=== PATIENT | male | born 1950 | race Caucasian/White ===

== ENCOUNTER 2019-03-19 12:18 | Inpatient (IN) | payer MEDICARE ==
[~2019-03-19] VITALS: Ht 177.8 cm; Wt 100.1 kg
[2019-04-03] VITALS (13 sets, daily range): BP systolic 122–156; BP diastolic 71–87; PULSE 75–93; TEMP 97.9–98.4
[2019-04-03] MEDS ORDERED: LOTENSIN20 MG PO (06:13)
[2019-04-03] MEDS ORDERED: ALEVE 220MG220 MG PO (06:33)
--- NOTE | 2019-04-03 11:30 | NUR ---
Patient is back from surgery. He is drowsy. His is at bedside. Denies nausea and pain at this time. Discussed ERAS protocol. Explained diet. Oriented patient to room. at bedside. No other changes at this time. Call light within reach.
--- NOTE | 2019-04-03 18:30 | NUR ---
Patient is doing well. He is tolerating clear liquids. He has got up and walked to the hallway. Denies nausea. Stated that his pain is about an 8 when he sits up. Stated it is better since getting ultram. Denies nausea. No other changes at this time. Call light within reach.
--- NOTE | 2019-04-03 20:00 | NUR ---
Report received. Assumed care for 3d artist. A&Ox3-drowsy. Assessment complete. VS stable. LAPSx5-four with melton set-edges well approximated/1 with gauze-C/D/I. Denies need for pain medication-received tylenol at 1830. Denies nausea/shortness of breath. Up ambulating in hallway. Left hand INT flushes without difficulty. Tolerating diet/voiding. Denies passing gas. PLan of care discussed for this shift to include pain control/ERAS protocol. Verbalizes understanding-denies questions. Call light in reach/bed in low/wheels locked. Will monitor.
[2019-04-04] VITALS: BP 132/75; PULSE 84; TEMP 97.9
--- NOTE | 2019-04-04 00:45 | NUR ---
Rating pain 3/10 to abdomen-constant ache-worsens with movement. Tramadol give per dr order. Denies nausea. Will monitor.
[2019-04-04 04:00] VITALS: BP 149/73; PULSE 84; TEMP 97.8
--- NOTE | 2019-04-04 05:45 | NUR ---
Has rested well this shift. Ambulating in hallways, tolerating PO, pain controlled with scheduled tylenol/tramadol PRN. Rating pain this AM 1/10 to abdomen-described as ache. Denies need for pain intervention. Denies nausea/shortness of breath. Passing gas. Encouraged to call for questions/concerns. Verbalizes understanding. Will monitor.
[2019-04-04 07:11] VITALS: BP 154/87; PULSE 85; TEMP 97.5
[2019-04-04 07:24] LABS: HEMOGLOBIN 10.5 g/dl (13.5-18.0)
--- NOTE | 2019-04-04 07:27 | NUR ---
Pt assessment completed this shift by this student RN. Patient noted to have 5 lap sites. 4 are BLUE with no drainage or swelling present. 1 dressing remains to mid lower abdomen. Dressing remains CDI at this time. Pt abdomen is round and hypoactive BS x 4 quadrants. Pt remains on clear liquid diet, tolerating well. Pt was able to have liquid bowel movement this morning. States still unable to pass gas.
--- NOTE | 2019-04-04 07:33 | NUR ---
REPORT FROM JANIS MCKEON.
[2019-04-04 07:35] LABS: HEMATOCRIT 34.3 % (42.0-52.0)
[2019-04-04 07:40] LABS: CALCIUM 9.1 mg/dL (8.4-10.2); CREATININE, serum 0.85 (0.66-1.25); MAGNESIUM 1.9 mg/dL (1.6-2.3); POTASSIUM 4.2 mmol/L (3.4-5.0)
--- NOTE | 2019-04-04 09:21 | NUR ---
AGREE WITH DELIA MERCHANT STUDENT'S ASSESSMENTS THIS SHIFT.
[2019-04-04 12:03] VITALS: BP 160/79; PULSE 98; TEMP 97.1
--- NOTE | 2019-04-04 13:17 | NUR ---
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 Pt had x1 bowel movement this shift. Pt does c/o pain when rising from sitting to standing position and laying to sitting postion. States when he is up ambulating or sitting up, the pain is bareable and rates it a 4 at this time. Pt did go from clear liquid diet to blended foods this shift and is tolerating well. Pt's and daughter have been at bedside today and did bring him chewing gum which he is compliant with chewing at this time.
--- NOTE | 2019-04-04 14:53 | NUR ---
First visit from the student financial aid manager. No needs right now.
--- NOTE | 2019-04-04 15:16 | NUR ---
KATARINA met with the patient, patient's ([place], ph#[phone]), and daughter (Ayush) to discuss discharge plan. The patient lives in [place] with his . He reports independence with ADLs and has canes. The patient's PCP is Dr. Marvin Trejo and he receives his medications at [place] [facility] He reports no difficulties obtaining his meds. The patient does not have advanced directives in EMR, but he states that he believes he has them completed. He states that his would be his DPOA-HC. The patient plans to return home upon discharge. The patient's and daughter then asked to speak to SW alone. The patient's and daughter expressed their concerns with the patient's depression and asked about caregiver support groups for cancer. They state that the patient does not like to speak about his depression and wondered if the physician could address it. KATARINA informed the patient's nurse of the above information. KATARINA then contacted [employer] to locate any local caregiver support groups. The senior customer service representative reports that there is none local, but there is online resoures. The senior customer service representative provided me with [email or web address] and [email or web address]. SW provided that information to the patient's . No other additional needs at this time.
[2019-04-04 15:45] VITALS: BP 149/45; PULSE 70; TEMP 98
[2019-04-04 20:00] VITALS: BP 146/72; PULSE 79; TEMP 97.9
[2019-04-05] VITALS: BP 135/70; PULSE 71; TEMP 98.3
[2019-04-05 04:00] VITALS: BP 123/69; PULSE 67; TEMP 97.9
--- NOTE | 2019-04-05 04:10 | NUR ---
Patient has rested well througout the night. Transverse incision and lap sites have no drainage. Patient states pain 2/10 when lying in bed, but when sitting up and ambulating to the restroom it jumps to an 8/10. PRN Tramadol given. Noted to be effective. Patient denies any further needs. Will continue to monitor.
--- NOTE | 2019-04-05 06:40 | NUR ---
appears to be dozing, bedside shift report received from LINDA Jarrell
[2019-04-05 06:58] VITALS: BP 126/70; PULSE 68; TEMP 97.1
--- NOTE | 2019-04-05 08:20 | NUR ---
up and aboaut in room independently
--- NOTE | 2019-04-05 08:23 | NUR ---
Pt assessed this shift by this student nurse. Pt c/o pain at a 1 when resting in bed, but states upon movement such as going from a laying to sitting positiong, his pain jumps to a 5. Pt denies pain medicine at this time. Pt educated on compliance with ambulation. Pt up ambulating independently in the hallway this morning. Pt advanced to a regular diet and is tolerating well. Pt states he has had x1 bowel movement this morning and denies the appearance of blood in his stool. Pt states stool is more formed and brown in color. Pt educated about chewing gum.
--- NOTE | 2019-04-05 08:50 | NUR ---
resting in bed, denies needs, states has ambulated in [place] and tolerates well, will plan discharge later today
--- NOTE | 2019-04-05 10:00 | NUR ---
full assessment completed, have reviewed assessment completed by student and in agreement with that assessment
[2019-04-05 12:12] VITALS: BP 123/63; PULSE 75; TEMP 97.8
--- NOTE | 2019-04-05 13:44 | NUR ---
discharge instructions given to patient and his , verbalizes understanding
--- NOTE | 2019-04-05 13:55 | NUR ---
discharged per WC
== END 2019-04-05 13:55 | disposition home or self-care (01) | DRG 331 ==
LOC: INPTSU 04-03 05:37 → SURG 04-03 07:30
PROVIDERS: ADMIT Surgery
PROC: 8E0W4CZ Robotic Assisted Procedure of Trunk Region, Percutaneous Endoscopic Approach (ICD-10-PCS; 2019-04-03)
PROC: 0DTN4ZZ Resection of Sigmoid Colon, Percutaneous Endoscopic Approach (ICD-10-PCS; principal; 2019-04-03 07:30)
DX: C18.7 Malignant neoplasm of sigmoid colon (principal); I10 Essential (primary) hypertension
CPT/HCPCS: A4314; A9284; J0690; J1100; J1170; J1650; J2405; J2704; J3010; J7120